=== PATIENT | male | born 1975 | race Caucasian/White ===

== ENCOUNTER 2016-11-23 20:21 | Inpatient (IN) | payer MEDICAID ==
[~2016-11-23] VITALS: Ht 175.3 cm; Wt 95.3 kg
[2016-11-23 20:23] VITALS: BP 123/77
[2016-11-23] MEDS ORDERED: [UNRECOGNIZED DRUG - CODE] PO (20:30)
--- NOTE | 2016-11-23 23:20 | NUR ---
PATIENT PRESENTS TO ED WITH C/O NUMBNESS AND TINGLING X 2 DAYS ON THE RIGHT ARM AND RIGHT LEG, S/P DENTAL APPT FOR CROWN ON LEFT LOWER MOLAR. PT DENIES N/V/D; SKIN IS PINK/WARM/DRY; AAOX4 WITH EVEN AND STEADY GAIT; LUNGS CLEAR BL; HR EVEN AND REGULAR; PT DENIES ANY FEVER, CP, SOB, OR COUGH AT THIS TIME; PATIENT STATES PAIN OF 8/10 AT THIS TIME; VSS; PATIENT POSITIONED FOR COMFORT; HOB ELEVATED; BEDRAILS UP X2; BED DOWN. ER MD MADE AWARE OF PT STATUS.
[2016-11-24] MEDS ORDERED: DOCUSATE SODIUM 100 MG GELCAP PO PRN (01:25)
[2016-11-24] MEDS ORDERED: MORPHINE SULFATE 2 MG/ML SYR IVP PRN (01:25)
[2016-11-24] MEDS ORDERED: ACETAMINOPHEN 325 MG TAB PO PRN (01:25)
[2016-11-24] MEDS ORDERED: ONDANSETRON 4 MG/2 ML VIAL IVP PRN (01:25)
[2016-11-24] MEDS: ATORVASTATIN 20 MG TAB PO SCH ×2 (01:25→08:03)
[2016-11-24] MEDS: ASPIRIN 81 MG TAB.CHEW PO SCH ×2 (01:30→08:03)
--- NOTE | 2016-11-24 01:36 | NUR ---
Patient will be admitted to care of DR NICHOLE . Admited to TELE 120B. Will go to room 120B. Belongings list completed. Report to RUBÉN ROGEL .
--- NOTE | 2016-11-24 02:10 | NUR ---
PATIENT ADMITTED TO UNIT FROM ED, PATIENT AMBULATED FROM GURNEY TO BED, PATIENT HAS MILD WEAKNESS TO RIGHT SIDE EXTREMITIES AND REPORTS SHAKING OF THE EXTREMITIES. AT BEDSIDE, STATED PATIENT HAS HIGH ANXIETY. PATIENT ON ROOM AIR, NO SOB OR SIGN OF DISTRESS, AAOX4. IV PATENT AND INTACT. DENIES PAIN, ORIENTED PATIENT TO ROOM AND CALL LIGHT, CONNECTED TO TELE MONITOR. DISCUSSED PLAN OF CARE WITH PATIENT, PATIENT VERBALIZED UNDERSTANDING, CALL LIGHT WITHIN REACH. WILL CONTINUE TO MONITOR.
[2016-11-24] MEDS ORDERED: LORazepam 0.5 MG TAB PO PRN (02:40)
[2016-11-24 04:00] VITALS: BP 107/62
--- NOTE | 2016-11-24 04:00 | NUR ---
VITAL SIGNS STABLE, NO SOB OR SIGN OF DISTRESS, WILL CONTINUE TO MONITOR
[2016-11-24] MEDS ORDERED: MECLIZINE 25 MG TAB PO PRN (06:55)
--- NOTE | 2016-11-24 07:20 | NUR ---
ENDORSED PATIENT TO DAY RN AT BEDSIDE, PATIENT IN STABLE CONDITION
--- NOTE | 2016-11-24 07:21 | NUR ---
PT ALERT AND ORIENTED X4, GREENLANDIC SPEAKING. NO SIGNS OF ACUTE DISTRESS. SKIN IS WARM AND DRY. NO SIGNS OF ANY BOWEL OR BLADDER DISCOMFORT. DENIES OF ANY PAIN AT THIS TIME. ALL NEEDS ATTENDED. SAFETY PRECAUTIONS MAINTAINED. CALL LIGHT WITHIN REACH.
[2016-11-24 08:00] VITALS: BP 112/60
[2016-11-24] MEDS: FAMOTIDINE 20 MG TAB PO SCH (08:04)
[2016-11-24] MEDS ORDERED: NON-FORMULARY ITEM (Ranitidine HCl (Zantac) 1 TAB) PO SCH (09:00)
--- NOTE | 2016-11-24 09:17 | NUR ---
PATIENT HAS BEEN SCREENED AND CATEGORIZED LOW NUTRITION RISK. PATIENT WILL BE SEEN WITHIN 7 DAYS OF ADMISSION. 11/30/[address]
[2016-11-24 11:56] VITALS: BP 115/61
[2016-11-24 16:00] VITALS: BP 106/70
--- NOTE | 2016-11-24 17:10 | NUR ---
WAS SEEN BY DR. HICKMAN, NEW ORDERS RECEIVED. NOTED AND CARRIED OUT.
[2016-11-24] MEDS ORDERED: GABAPENTIN 300 MG CAP PO SCH ×2 (17:11→17:35)
--- NOTE | 2016-11-24 18:05 | NUR ---
PT ALERT AND RESPONSIVE, NO SIGNS OF ACUTE DISTRESS. WILL ENDORSE TO ONCOMING NUMERICAL CONTROL PROGRAMMER NURSE FOR CONTINUITY OF CARE.
--- NOTE | 2016-11-24 19:20 | NUR ---
RECEIVED PT AWAKE ON BED TALKING TO FAMILY MEMBERS AT BEDSIDE, VITAL SIGNS STABLE, DENIES ANY NUMBNESS OR DIZZINESS, COMPLAINING OF HEADACHE, WILL MEDICATE PRN, PLAN OF CARE DISCUSSED, SAFETY MEASURES IN PLACE, CALL LIGHT WITHIN REACH.
[2016-11-24 20:00] VITALS: BP 104/58
--- NOTE | 2016-11-24 20:30 | NUR ---
VENOUS AND ARTERIAL ULTRASOUND OF MARGE LOWER EXT DONE, PT TOLERABLE HEADACHE AT THIS TIME, WILL CALL IF PAIN GET WORST, ALL NEEDS ATTENDED.
--- NOTE | 2016-11-24 21:40 | NUR ---
ROUNDED ON PT, SLEEPING, NO SIGNS OF DISTRESS, MONITORED CLOSELY.
[2016-11-25] VITALS: BP 116/77
--- NOTE | 2016-11-25 | NUR ---
PT SLEEPING, EASILY AROUSABLE, VITAL SIGNS STABLE, DENIES ANY PAIN OR DIZZINESS, CONTINUE TO MONITOR CLOSELY.
--- NOTE | 2016-11-25 01:30 | NUR ---
PT AMBULATED TO BR WITH STEADY GAIT, MONITORED CLOSELY.
[2016-11-25 04:00] VITALS: BP 102/58
--- NOTE | 2016-11-25 04:00 | NUR ---
PT SLEEPING, EASILY AROUSABLE, VITAL SIGNS STABLE, DENIES PAIN OR DIZZINESS.
--- NOTE | 2016-11-25 06:25 | NUR ---
ROUNDED ON PT, SLEEPING, NO SIGNS OF DISTRESS.
--- NOTE | 2016-11-25 07:15 | NUR ---
PT SLEEPING, NO SIGNS OF DISTRESS, REPORT GIVEN TO SOBIA RN FOR CONTINUITY OF CARE.
--- NOTE | 2016-11-25 07:16 | NUR ---
PT. ALERT AND ORIENTED X4. BELGI[place] SPEAKING. BREATHING EVENLY AND UNLABORED. NO SIGNS OF ACUTE DISTRESS. SKIN IS WARM AND DRY, INTACT. NO SIGNS OF ANY BOWEL/BLADDER DISCOMFORT. DENIES OF ANY PAIN OR DISCOMFORT. ALL NEEDS ATTENDED, SAFETY PRECAUTIONS MAINTAINED, HALF BILATERAL SIDE RAILS UP, BED LOCKS ON. CALL WITHIN REACH.
[2016-11-25 07:48] VITALS: BP 109/70
[2016-11-25] MEDS: ASPIRIN 81 MG TAB.CHEW PO SCH (08:28)
[2016-11-25] MEDS: FAMOTIDINE 20 MG TAB PO SCH (08:29)
[2016-11-25] MEDS: ATORVASTATIN 20 MG TAB PO SCH (08:29)
[2016-11-25] MEDS ORDERED: GABAPENTIN 300 MG CAP PO SCH (09:00)
[2016-11-25 11:58] VITALS: BP 99/47
[2016-11-25] MEDS ORDERED: ASPIRIN ADULT L81 M1 PO (14:24)
[2016-11-25] MEDS ORDERED: GABAPENTIN300 M3 PO (14:24)
[2016-11-25] MEDS ORDERED: ATORVASTATIN CA20 MG PO (14:24)
--- NOTE | 2016-11-25 14:29 | NUR ---
WAS SEEN BY DR. HICKMAN, RECEIVED NEW ORDER. OCTOBER D/C HOME TODAY. NOTED AND CARRIED OUT
--- NOTE | 2016-11-25 15:40 | NUR ---
PT ALERT AND ORIENTED, NO SIGNS OF ACUTE DISTRESS. MAY D/C HOME ORDERED. EDUCATED TO FOLLOW UP WITH PCP IN 1 WEEK. CONTINUE CURRENT HOME MEDS ORDERED. PT AND FAMILY VERBALIZED UNDERSTANDING. PERSONAL BELONGINGS WITH PT UPON DISCHARGE. IV LINE WRIST BANDS AND TELE LEADS REMOVED. ESCORTED TO FRONT LOBBY WITH FAMILY. TO GO HOME WITH PRIVATE AUTO.
== END 2016-11-25 15:40 | disposition home or self-care (01) | DRG 47 ==
LOC: MED 20:21 → MTU 11-24 01:24
PROVIDERS: ADMIT Family Medicine; ATTEND Family Medicine
DX: G45.9 Transient cerebral ischemic attack, unspecified (principal); G90.9 Disorder of the autonomic nervous system, unspecified; E78.2 Mixed hyperlipidemia; E66.9 Obesity, unspecified; M79.2 Neuralgia and neuritis, unspecified; Z68.31 Body mass index [BMI] 31.0-31.9, adult; Z79.899 Other long term (current) drug therapy; Z72.89 Other problems related to lifestyle